=== PATIENT | female | born 1985 | race Two or more races ===

== ENCOUNTER 2024-04-13 14:20 | Emergency (ER) | payer OTHER ==
[~2024-04-13] VITALS: Ht 165.1 cm; Wt 81.1 kg
[2024-04-13 14:54] VITALS: BP 106/87; TEMP 98.6
[2024-04-13 14:55] VITALS: PULSE 118; RESP 16; O2SAT 100
[2024-04-13] MEDS: methylPREDNISolone SOD SUCC 125 MG/2 ML VL IV ONE (15:27)
[2024-04-13] MEDS ORDERED: HYDR25CA PO (15:34)
[2024-04-13] MEDS ORDERED: METH4PAK PO (15:34)
== END 2024-04-13 15:44 | disposition home or self-care (01) ==
LOC: ER 14:20 → EDBD 14:20 → ER 15:41
DX: T78.49XA Other allergy, initial encounter (principal); Z79.899 Other long term (current) drug therapy; X58.XXXA Exposure to other specified factors, initial encounter
CPT/HCPCS: 96374; 99283; J2919